=== PATIENT | male | born 1995 | race Hispanic/Latino ===

== ENCOUNTER 2019-07-20 23:37 | Emergency (ER) | payer MEDICAID, SELFPAY ==
[2019-07-21] MEDS ORDERED: Diazepam 5 MG TAB ONE (00:28)
== END 2019-07-21 00:29 | disposition home or self-care (01) ==
LOC: ERS 23:37
DX: S16.1XXA Strain of muscle, fascia and tendon at neck level, initial encounter (principal); V89.2XXA Person injured in unspecified motor-vehicle accident, traffic, initial encounter
CPT/HCPCS: 99284

== ENCOUNTER 2023-02-25 13:50 | Emergency (ER) | payer BC, SELFPAY ==
[2023-02-25] MEDS ORDERED: Bacitracin 1 PK ONE (17:07)
== END 2023-02-25 17:17 | disposition home or self-care (01) ==
LOC: ERS 13:50
DX: S61.211A Laceration without foreign body of left index finger without damage to nail, initial encounter (principal); W26.0XXA Contact with knife, initial encounter; Y93.89 Activity, other specified
CPT/HCPCS: 12001